=== PATIENT | female | born 1985 | race Caucasian/White ===

== ENCOUNTER 2018-01-25 06:19 | Day surgery (SDC) | payer OTHER ==
[~2018-01-25] VITALS: Ht 154.9 cm; Wt 91.2 kg
[~2018-01-25 06:19] MED LIST: PREN-234 PO
[2018-01-25] MEDS ORDERED: BUPIVACAINE-MPF 0.5% 30 ML VIAL INJ ONE (07:30)
[2018-01-25] MEDS ORDERED: LIDOCAINE 2% 100 MG/5 ML SYR IVP ONE (08:00)
[2018-01-25] MEDS ORDERED: PROPOFOL 200 MG/20 ML VIAL IV ONE (08:00)
[2018-01-25] MEDS ORDERED: DESFLURANE 240 ML BTL INH ONE (08:00)
[2018-01-25] MEDS ORDERED: DEXAMETHASONE 4 MG/ML VIAL ONE (08:00)
[2018-01-25] MEDS ORDERED: SUCCINYLCHOLINE CHLORIDE 200 MG/10 ML VIAL IVP ONE (08:00)
[2018-01-25] MEDS ORDERED: fentaNYL 0.05 MG/ML VIAL ONE (08:24)
[2018-01-25] MEDS ORDERED: MIDAZOLAM 2 MG/2 ML VIAL ONE (08:24)
[2018-01-25] MEDS ORDERED: ONDANSETRON 4 MG/2 ML VIAL IVP PRN ×2 (08:25→08:45)
[2018-01-25] MEDS ORDERED: MORPHINE SULFATE 4 MG/ML SYR IM/IVP PRN (08:25)
[2018-01-25] MEDS ORDERED: ACETAMINOPHEN/CODEINE 300/30MG 1 TAB PO PRN (08:25)
[2018-01-25] MEDS ORDERED: IBUPROFEN 800 MG TAB PO PRN (08:25)
[2018-01-25] MEDS ORDERED: HYDROmorphone 1 MG/ML AMP IVP PRN (08:45)
== END 2018-01-25 11:05 | disposition home or self-care (01) ==
LOC: MDS 06:19 → MMU 06:19 → MDS 11:05
PROVIDERS: ATTEND Obstetrics & Gynecology
DX: N94.6 Dysmenorrhea, unspecified (principal); N73.6 Female pelvic peritoneal adhesions (postinfective); E66.9 Obesity, unspecified; J45.909 Unspecified asthma, uncomplicated; F17.210 Nicotine dependence, cigarettes, uncomplicated; N18.9 Chronic kidney disease, unspecified; E11.22 Type 2 diabetes mellitus with diabetic chronic kidney disease; I13.0 Hypertensive heart and chronic kidney disease with heart failure and stage 1 through stage 4 chronic kidney disease, or unspecified chronic kidney disease; D64.9 Anemia, unspecified; F03.90 Unspecified dementia, unspecified severity, without behavioral disturbance, psychotic disturbance, mood disturbance, and anxiety; K21.9 Gastro-esophageal reflux disease without esophagitis; Z90.79 Acquired absence of other genital organ(s); Z79.899 Other long term (current) drug therapy
CPT/HCPCS: 58662; J0330; J0690; J1100; J2001; J2250; J2704; J3010; J3490; J7060; J7120; 82374

== ENCOUNTER 2018-10-20 15:44 | Emergency (ER) | payer OTHER ==
[~2018-10-20] VITALS: Ht 160 cm; Wt 91.8 kg
[2018-10-20 15:50] VITALS: BP 111/75
--- NOTE | 2018-10-20 15:57 | NUR ---
AFTER PROVIDING URINE SAMPLE, PT AMBULATES BACK TO THE LOBBY
--- NOTE | 2018-10-20 17:15 | NUR ---
PATIENT LEFT WITHOUT BEING SEEN BY DR. GUTIERREZ. NO FURTHER CARE PROVIDED FOR PATIENT.
--- NOTE | 2018-10-20 17:15 | NUR ---
PT CALLED X 1 NO RESPONSE
--- NOTE | 2018-10-20 17:20 | NUR ---
PT CALLED X 2 NO RESPONSE
--- NOTE | 2018-10-20 17:27 | NUR ---
Note venkatalinda in EDM - 10/20/18 at 1733 by [email or web address] Patient discharged with v/s stable. Written and verbal after care instructions given and explained. Patient alert, oriented and verbalized understanding of instructions. Ambulatory with steady gait. All questions addressed prior to discharge. ID band removed. Patient advised to follow up with PMD. Rx of LEVAQUIN AND PREDNISONE given. Patient educated on indication of medication including possible reaction and side effects. Opportunity to ask questions provided and answered.
--- NOTE | 2018-10-20 17:39 | NUR ---
PT CALLED X 3 NO RESPONSE
== END 2018-10-20 17:15 | disposition left against medical advice (07) ==
LOC: MED 15:44
DX: R10.9 Unspecified abdominal pain (principal); R11.0 Nausea; Z53.21 Procedure and treatment not carried out due to patient leaving prior to being seen by health care provider
CPT/HCPCS: 81002; 81025

== ENCOUNTER 2018-10-20 18:06 | Emergency (ER) | payer OTHER ==
[~2018-10-20] VITALS: Ht 160 cm; Wt 91.6 kg
[2018-10-20 18:22] VITALS: BP 124/76
--- NOTE | 2018-10-20 18:30 | NUR ---
AFTER PROVIDING URINE SPECIMEN, PT AMBULATES BACK TO THE LOBBY
--- NOTE | 2018-10-20 20:11 | NUR ---
Patient ambulated to bed 1. RN evaluating patient at bedside.
--- NOTE | 2018-10-20 20:20 | NUR ---
PT BIB SELF C/O RIGHT ABD PAIN. PT STATES SHE HAS HAD RIGHT ABD PAIN X3 DAYS. PT DENIES TRAUMA, REDNESS, SWELLING OR DISCHAGE. TENDERNESS TO TOUCH. PT STATES SHE HAS A HX OF SIEZURES LAST SIEZURE WAS 5-7 YEARS AGO, PT STATES SHE DOES NOT TAKE MEDICATION FOR SIEZURES. PT IN GOWN IN BED; BED IN LOWER LOCKED POSITION. ER MD MADE AWARE OF PT STATUS. WILL CONTINUE TO MONITOR. PMH: SIEZURES RX: DENIES
[2018-10-20] MEDS ORDERED: MORPHINE SULFATE 4 MG/ML SYR IVP ONE (20:30)
[2018-10-20 20:31] LABS: APPEARANCE,URINE CLEAR (CLEAR); BILIRUBIN,URINE NEGATIVE (NEGATIVE); BLOOD, URINE NEGATIVE (NEGATIVE); COLOR,URINE YELLOW (YELLOW); LEUKOCYTE ESTERASE ,URINE NEGATIVE (NEGATIVE); NITRITE, URINE NEGATIVE (NEGATIVE); PH,URINE 5.5 (5.0-9.0); UGLUCOSE NEGATIVE (NEGATIVE)
[2018-10-20 20:40] LABS: BASOPHILS % (AUTO) 0.3 % (0.0-2.0); EOSINOPHILS # (AUTO) 0.1 K/uL (0-0.4); EOSINOPHILS % (AUTO) 1.2 % (0.0-4.0); HEMATOCRIT 36.8 % (36-48); HEMOGLOBIN 12.6 g/dL (12.0-16.0); LYMPHOCYTES # (AUTO) 2.1 K/uL (2.5-16.5); LYMPHOCYTES % (AUTO) 21.7 % (20.5-51.1); MEAN CORPUSCULAR HEMOGLOBIN 28 pg (27-31); MEAN CORPUSCULAR HGB CONC 34 g/dL (33-37); MEAN CORPUSCULAR VOLUME 82.4 fL (80-94); MONOCYTES # (AUTO) 0.5 K/uL (0.8-1.0); MONOCYTES % (AUTO) 4.6 % (1.7-9.3); NEUTROPHILS # (AUTO) 7.1 K/uL (1.8-7.7); NEUTROPHILS % (AUTO) 72.2 % (42.2-75.2); PLATELET COUNT (AUTO) 291 K/uL (140-450); RED BLOOD CELL COUNT(AUTO) 4.47 MIL/uL (4.20-5.40); RED CELL DISTRIBUTION WIDTH 13.2 % (11.6-13.7); WHITE BLOOD COUNT (AUTO) 9.8 K/uL (4.8-10.8)
--- NOTE | 2018-10-20 20:40 | NUR ---
IV START: L AC 18G, FLUSHED WELL W/O RESISTANCE. NO REDNESS OR SWELLING NOTED, DENIES PAIN AT SITE. PT TOLERATED WELL.
[2018-10-20 20:55] LABS: ALBUMIN 3.2 g/dL (3.4-5.0); ANION GAP 15.6 (8-16); CARBON DIOXIDE 25.4 mmol/L (21-32); CREATININE 0.6 mg/dL (0.6-1.3)
--- NOTE | 2018-10-20 21:19 | NUR ---
PT STATES SOME RELIEF FROM PAIN AND STATES SHE IS FEELING BETTER, PAIN 5/10 TO RIGHT ABD AT THIS TIME.
[2018-10-20 21:49] LABS: TOTAL BILIRUBIN 0.3 mg/dL (0.0-1.0)
[2018-10-20 23:15] VITALS: BP 125/75
== END 2018-10-20 23:05 | disposition home or self-care (01) ==
LOC: MED 18:06
DX: K59.00 Constipation, unspecified (principal); Z90.49 Acquired absence of other specified parts of digestive tract; Z79.899 Other long term (current) drug therapy
CPT/HCPCS: 36415; 74176; 76700; 80053; 81003; 81025; 83690; 85025; 96374; 99284; J2270; Q0092

== ENCOUNTER 2019-06-13 19:51 | Emergency (ER) | payer OTHER ==
[~2019-06-13] VITALS: Ht 167.6 cm; Wt 99.8 kg
[2019-06-13 20:15] VITALS: BP 129/77
--- NOTE | 2019-06-13 20:15 | NUR ---
TO BED # 05 AMBULATORY
--- NOTE | 2019-06-13 20:32 | NUR ---
FIRST CONTACT PATIENT C/O SHEARER, DIZZINESS, CP AND AND DIFFICULTY SLEEPING X3 DAYS. THERE ARE NO FOCAL DEFICITS NOTED, GCS 15, AAOX4, NEURLOGICALLT INTACT. PATIENT DOES ENDORSE SOME INTERMITTENT CP,UNPROVOKED, MID CHEST, RADIATING TO THE NECK AND HEAD. PATIENT EXPRESSES THROBBING SENSATION, WITHOUT N/V/D, OR DIAPHORESIS. PATIENT BREATHING IS EVEN AND UNLABORED, EQUAL RISE AND FALL OF CHEST. PATIENT UPDATED WITH PLAN OF CARE. NO ACUTE DISTRESS NOTED. WILL CONTINUE TO MONITOR
--- NOTE | 2019-06-13 20:35 | NUR ---
Patient being evaluated by physician at bedside.
[2019-06-13] MEDS ORDERED: KETOROLAC 30 MG/ML VIAL IM ONE (20:40)
[2019-06-13 23:07] VITALS: BP 132/71
--- NOTE | 2019-06-13 23:07 | NUR ---
Patient discharged with v/s stable. Written and verbal after care instructions given and explained. Patient alert, oriented and verbalized understanding of instructions. Ambulatory with steady gait. All questions addressed prior to discharge. ID band removed. Patient advised to follow up with PMD. Rx of VALIUM AND NAPROSYN given. Patient educated on indication of medication including possible reaction and side effects. Opportunity to ask questions provided and answered.
--- NOTE | 2019-06-14 11:28 | NUR ---
Dr. Elena asked for patient to be called back for report and CD. Spoke with patient and advised her that was a change in her x-ray report. I told the patient she could come picking table worker her x-ray report with the CD images with ER admitting at her earliest convenienece. Pt verbalized understanding and report with CD left with Ailyn from ER admitting.
== END 2019-06-13 23:07 | disposition home or self-care (01) ==
LOC: MED 19:51
DX: R07.89 Other chest pain (principal); E78.5 Hyperlipidemia, unspecified; Z79.899 Other long term (current) drug therapy; Z87.19 Personal history of other diseases of the digestive system; Z90.49 Acquired absence of other specified parts of digestive tract
CPT/HCPCS: 71045; 93005; 96372; 99283; J1885; Q0092

== ENCOUNTER 2019-08-23 22:41 | Emergency (ER) | payer OTHER ==
[~2019-08-23] VITALS: Ht 154.9 cm; Wt 90.7 kg
[2019-08-23 23:15] VITALS: BP 114/85
--- NOTE | 2019-08-24 02:00 | NUR ---
33 Y/O FEMALE PRESENTS TO ED WITH C/O PRODUCTIVE COUGH, PAIN WITH COUGH, AND SHEARER X2 DAYS. AFEBRILE. GREEN SPUTUM. BILAT UPPER LOBE EXPIRATORY WHEEZING. 6/10 PAIN WITH COUGH. PT IN CHAIR SITTING UPRIGHT. NO DISTRESS OF ANY TYPE NOTED. ER MD AWARE. CONTINUE TO MONITOR.
--- NOTE | 2019-08-24 02:00 | NUR ---
PT AMBULATED TO CHD
[2019-08-24] MEDS ORDERED: KETOROLAC 60 MG/2 ML VIAL IM ONE (02:20)
[2019-08-24 02:45] VITALS: BP 114/85
--- NOTE | 2019-08-24 02:45 | NUR ---
Patient discharged with v/s stable. She states pain relief. Written and verbal after care instructions given and explained. Patient alert, oriented and verbalized understanding of instructions. Ambulatory with steady gait. All questions addressed prior to discharge. ID band removed. Patient advised to follow up with PMD. Rx of EC-Naprosyn given. Patient educated on indication of medication including possible reaction and side effects. Opportunity to ask questions provided and answered.
== END 2019-08-24 02:45 | disposition home or self-care (01) ==
LOC: MED 22:41
DX: B34.9 Viral infection, unspecified (principal); Z79.899 Other long term (current) drug therapy
CPT/HCPCS: 87804; 96372; 99283; J1885

== ENCOUNTER 2019-09-24 18:56 | Emergency (ER) | payer OTHER ==
[~2019-09-24] VITALS: Ht 154.9 cm; Wt 68.9 kg
[2019-09-24 18:58] VITALS: BP 90/43
--- NOTE | 2019-09-24 19:04 | NUR ---
WAIT AT LOBBY.HANDED ON URINE CUP.
--- NOTE | 2019-09-24 20:54 | NUR ---
PT AMBULATED TO BED 02
--- NOTE | 2019-09-24 21:00 | NUR ---
33 YEAR OLD MALE COMPLAINS OF RIGHT SIDE FLANK PAIN THAT RADIATES TO ABDOMEN STARTING TODAY. PATIENT STATES SHE HAS 7/10 PAIN. PATIENT DENIES N/V. PATIENT STATES SHE ALSO HAD DIARRHEA TODAY. PATIENT AOX4, BREAHTING EVEN AND UNLABORED, SKIN WARM AND DRY. BED IN LOWEST POSITION, LOCKED, BED RAIL UPX1. PMH - DENIES ALLERGIES - NONE
[2019-09-24 21:35] LABS: APPEARANCE,URINE CLOUDY (CLEAR); BILIRUBIN,URINE NEGATIVE (NEGATIVE); BLOOD, URINE 3+ (NEGATIVE); COLOR,URINE YELLOW (YELLOW); LEUKOCYTE ESTERASE ,URINE 2+ (NEGATIVE); NITRITE, URINE NEGATIVE (NEGATIVE); PH,URINE 5.5 (5.0-9.0); UGLUCOSE NEGATIVE (NEGATIVE)
[2019-09-24 21:36] LABS: BASOPHILS # (AUTO) 0.1 K/uL (0.00-0.22); BASOPHILS % (AUTO) 0.7 % (0.0-2.0); EOSINOPHILS # (AUTO) 0.1 K/uL (0-0.4); EOSINOPHILS % (AUTO) 1.1 % (0.0-4.0); HEMATOCRIT 39.3 % (36-48); HEMOGLOBIN 13.1 g/dL (12.0-16.0); LYMPHOCYTES % (AUTO) 32.2 % (20.5-51.1); MEAN CORPUSCULAR HEMOGLOBIN 28 pg (27-31); MEAN CORPUSCULAR HGB CONC 33 g/dL (33-37); MEAN CORPUSCULAR VOLUME 84.8 fL (80-94); MONOCYTES # (AUTO) 0.5 K/uL (0.8-1.0); MONOCYTES % (AUTO) 5.3 % (1.7-9.3); NEUTROPHILS # (AUTO) 5.7 K/uL (1.8-7.7); NEUTROPHILS % (AUTO) 60.7 % (42.2-75.2); PLATELET COUNT (AUTO) 318 K/uL (140-450); RED BLOOD CELL COUNT(AUTO) 4.63 MIL/uL (4.20-5.40); RED CELL DISTRIBUTION WIDTH 13.1 % (11.6-13.7); WHITE BLOOD COUNT (AUTO) 9.5 K/uL (4.8-10.8)
[2019-09-24 21:50] LABS: RBC,URINE 80-100 /HPF (0-5)
[2019-09-24 22:09] LABS: ALBUMIN 3.2 g/dL (3.4-5.0); ANION GAP 12.6 (8-16); CARBON DIOXIDE 30.2 mmol/L (21-32); CREATININE 0.9 mg/dL (0.6-1.3); POTASSIUM 3.8 mmol/L (3.5-5.1); TOTAL BILIRUBIN 0.2 mg/dL (0.0-1.0)
--- NOTE | 2019-09-24 22:11 | NUR ---
PATIENT ALERT AND AWAKE, BREATHING EVEN AND UNLABORED.
--- NOTE | 2019-09-24 22:43 | NUR ---
PATIENT ALERT AND AWAKE, BREATHING EVEN AND UNLABORED.
[2019-09-24 23:10] VITALS: BP 94/47
--- NOTE | 2019-09-24 23:10 | NUR ---
Patient discharged with v/s stable. Written and verbal after care instructions about urinary tract infections given and explained. Patient alert, oriented and verbalized understanding of instructions. Ambulatory with steady gait. All questions addressed prior to discharge. ID band removed. Patient advised to follow up with PMD. Rx of keflex given. Patient educated on indication of medication including possible reaction and side effects. Opportunity to ask questions provided and answered.
== END 2019-09-24 23:10 | disposition home or self-care (01) ==
LOC: MED 18:56
DX: N39.0 Urinary tract infection, site not specified (principal); R19.7 Diarrhea, unspecified; Z79.899 Other long term (current) drug therapy
CPT/HCPCS: 36415; 76705; 80053; 81001; 81025; 83690; 84703; 85025; 87086; 99284; Q0092; 87186

== ENCOUNTER 2020-03-20 01:25 | Emergency (ER) | payer OTHER ==
[~2020-03-20] VITALS: Ht 160 cm; Wt 101.6 kg
[2020-03-20 01:38] VITALS: BP 134/80
--- NOTE | 2020-03-20 02:38 | NUR ---
PT AMBULATED TO BED 1
[2020-03-20] MEDS ORDERED: KETOROLAC 30 MG/ML VIAL ONE (02:48)
[2020-03-20] MEDS: KETOROLAC 30 MG/ML VIAL IM ONE (03:00)
--- NOTE | 2020-03-20 03:00 | NUR ---
34 year old female presents to ER with c/o left sided headache s/p hitting head on the wall x 1 day after trying to catch an elderly falling. states +headache, +loc when incident took place. denies any other s/sx. PERRLA. a/o x 4. states taking tylenol x6 hours with no pain relief. pmhx: denies rx: denies nka
[2020-03-20 03:58] VITALS: BP 121/89
== END 2020-03-20 03:58 | disposition home or self-care (01) ==
LOC: MED 01:25
DX: S09.90XA Unspecified injury of head, initial encounter (principal); Z79.899 Other long term (current) drug therapy; W22.01XA Walked into wall, initial encounter; Y93.89 Activity, other specified; Y92.89 Other specified places as the place of occurrence of the external cause; Y99.8 Other external cause status
CPT/HCPCS: 36415; 70450; 84702; 96372; 99284; J1885

== ENCOUNTER 2021-04-02 04:18 | Emergency (ER) | payer OTHER ==
[~2021-04-02] VITALS: Ht 154.9 cm; Wt 105.2 kg
[2021-04-02 04:20] VITALS: BP 133/75
--- NOTE | 2021-04-02 04:20 | NUR ---
TO BED AMBULATORY
[2021-04-02] MEDS ORDERED: PANTOPRAZOLE 40 MG TABEC PO ONE (04:40)
[2021-04-02] MEDS ORDERED: ASPIRIN 325 MG TAB PO ONE (04:40)
[2021-04-02] MEDS ORDERED: NITROGLYCERIN 0.4 MG TAB SL ONE (04:40)
--- NOTE | 2021-04-02 05:01 | NUR ---
XRAY AT BEDSIDE.
--- NOTE | 2021-04-02 05:02 | NUR ---
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
--- NOTE | 2021-04-02 05:03 | NUR ---
PT BIB SELF FOR C/C CHEST PAIN THAT RADIATES TO LEFT ARM. BEGAN AT 0300. PAIN 10/10, DESCRIBED "PRESSURE." PT AMBULATORY, A & O X 3. NO JVD NOTED. CAP REFILL < 3 SECONDS. SKIN IS WARM, DRY AND INTACT. MED HX: PREDIABETIC ALLERGIES: NKA
--- NOTE | 2021-04-02 05:08 | NUR ---
BP NOTED 100/63, ERMD AWARE. ORDERS TO HOLD NITROSTAT FOR NOW.
--- NOTE | 2021-04-02 05:30 | NUR ---
IV 18G EST TO RIGHT FA BY JD PLATA. LABS DRAWN AND WALKED TO LAB.
[2021-04-02 05:43] LABS: BASOPHILS # (AUTO) 0.1 K/uL (0.00-0.22); BASOPHILS % (AUTO) 0.7 % (0.0-2.0); EOSINOPHILS # (AUTO) 0.2 K/uL (0-0.4); EOSINOPHILS % (AUTO) 1.4 % (0.0-4.0); HEMATOCRIT 36.7 % (36-48); HEMOGLOBIN 12.3 g/dL (12.0-16.0); LYMPHOCYTES # (AUTO) 2.8 K/uL (2.5-16.5); LYMPHOCYTES % (AUTO) 24.9 % (20.5-51.1); MEAN CORPUSCULAR HEMOGLOBIN 28 pg (27-31); MEAN CORPUSCULAR HGB CONC 33 g/dL (33-37); MEAN CORPUSCULAR VOLUME 84.6 fL (80-94); MONOCYTES # (AUTO) 0.5 K/uL (0.8-1.0); MONOCYTES % (AUTO) 4.5 % (1.7-9.3); NEUTROPHILS # (AUTO) 7.7 K/uL (1.8-7.7); NEUTROPHILS % (AUTO) 68.5 % (42.2-75.2); PLATELET COUNT (AUTO) 301 K/uL (140-450); RED BLOOD CELL COUNT(AUTO) 4.34 MIL/uL (4.20-5.40); RED CELL DISTRIBUTION WIDTH 14.2 % (11.6-13.7); WHITE BLOOD COUNT (AUTO) 11.3 K/uL (4.8-10.8)
[2021-04-02 06:00] LABS: ALBUMIN 3.3 g/dL (3.4-5.0); ANION GAP 12.3 (8-16); CARBON DIOXIDE 24.5 mmol/L (21-32); CREATININE 0.6 mg/dL (0.6-1.3); POTASSIUM 3.8 mmol/L (3.5-5.1); TOTAL BILIRUBIN 0.3 mg/dL (0.0-1.0)
--- NOTE | 2021-04-02 06:34 | NUR ---
LYNDA SIMPSON AT BEDSIDE.
[2021-04-02 06:58] VITALS: BP 100/63
--- NOTE | 2021-04-02 06:59 | NUR ---
Patient discharged with v/s stable. Written and verbal after care instructions given and explained. Patient verbalized understanding. Ambulatory with steady gait. All questions addressed prior to discharge. Advised to follow up with PMD.
== END 2021-04-02 06:59 | disposition home or self-care (01) ==
LOC: MED 04:18
DX: R07.89 Other chest pain (principal); R06.02 Shortness of breath; R00.2 Palpitations; Z79.899 Other long term (current) drug therapy
CPT/HCPCS: 36415; 71045; 80053; 84484; 85025; 93005; 99285; Q0092

== ENCOUNTER 2021-07-03 23:17 | Emergency (ER) | payer OTHER ==
[~2021-07-03] VITALS: Ht 167.6 cm; Wt 106.6 kg
[2021-07-03 23:25] VITALS: BP 129/85
[2021-07-04] MEDS ORDERED: ACETAMINOPHEN EXTRA STRENGTH 500 MG TAB PO ONE (00:40)
[2021-07-04] MEDS ORDERED: IBUPROFEN 400 MG TAB PO ONE (00:40)
--- NOTE | 2021-07-04 01:00 | NUR ---
Kaden sahu in [facility] - 07/04/21 at 0259 by [facility] NO NURSING INTERVENTIONS REQUIRED.
[2021-07-04 01:15] LABS: BASOPHILS # (AUTO) 0.1 K/uL (0.00-0.22); BASOPHILS % (AUTO) 0.9 % (0.0-2.0); EOSINOPHILS # (AUTO) 0.2 K/uL (0-0.4); EOSINOPHILS % (AUTO) 2.3 % (0.0-4.0); HEMATOCRIT 38.2 % (36-48); LYMPHOCYTES # (AUTO) 3.1 K/uL (2.5-16.5); LYMPHOCYTES % (AUTO) 31.7 % (20.5-51.1); MEAN CORPUSCULAR HEMOGLOBIN 28 pg (27-31); MEAN CORPUSCULAR HGB CONC 34 g/dL (33-37); MEAN CORPUSCULAR VOLUME 83.3 fL (80-94); MONOCYTES # (AUTO) 0.4 K/uL (0.8-1.0); MONOCYTES % (AUTO) 4.2 % (1.7-9.3); NEUTROPHILS # (AUTO) 5.9 K/uL (1.8-7.7); NEUTROPHILS % (AUTO) 60.9 % (42.2-75.2); PLATELET COUNT (AUTO) 346 K/uL (140-450); RED BLOOD CELL COUNT(AUTO) 4.58 MIL/uL (4.20-5.40); RED CELL DISTRIBUTION WIDTH 13.7 % (11.6-13.7); WHITE BLOOD COUNT (AUTO) 9.7 K/uL (4.8-10.8)
[2021-07-04 01:32] LABS: ANION GAP 12.2 (8-16); CARBON DIOXIDE 27.7 mmol/L (21-32); CREATININE 0.6 mg/dL (0.6-1.3); POTASSIUM 3.9 mmol/L (3.5-5.1)
[2021-07-04 01:36] LABS: ALBUMIN 3.3 g/dL (3.4-5.0); BILIRUBIN,DIRECT 0.1 mg/dL (0.0-0.3); TOTAL BILIRUBIN 0.2 mg/dL (0.0-1.0)
[2021-07-04 02:55] VITALS: BP 125/82
== END 2021-07-04 02:55 | disposition home or self-care (01) ==
LOC: MED 23:17
DX: R07.9 Chest pain, unspecified (principal); E78.5 Hyperlipidemia, unspecified; Z86.69 Personal history of other diseases of the nervous system and sense organs; Z79.899 Other long term (current) drug therapy
CPT/HCPCS: 36415; 71045; 80048; 80076; 81002; 81025; 83690; 84484; 84702; 85025; 93005; 99285

== ENCOUNTER 2021-08-07 14:45 | Emergency (ER) | payer OTHER ==
[~2021-08-07] VITALS: Ht 162.6 cm; Wt 107.0 kg
[2021-08-07 15:20] VITALS: BP 114/71
[2021-08-07] MEDS ORDERED: PROM118S5 PO (17:32)
[2021-08-07] MEDS ORDERED: NAPR-54 PO (17:32)
--- NOTE | 2021-08-07 20:06 | NUR ---
PT ASSESED AND DISCHARGED BY JEFF PALOMO. NO NURSING INTERVENTIONS NEEDED
== END 2021-08-07 23:16 | disposition home or self-care (01) ==
LOC: MED 14:45
DX: B34.9 Viral infection, unspecified (principal); Z20.822 Contact with and (suspected) exposure to COVID-19
CPT/HCPCS: 99283

== ENCOUNTER → 2021-08-08 16:32 | Emergency (ER) | payer OTHER ==
[~2021-08-08 16:32] MED LIST changes: +NAPR-54 PO; +PROM118S5 PO
--- NOTE | 2021-08-08 16:32 | NUR ---
PATIENT LEFT WITHOUT BEING SEEN BY DR. MORRISON. NO FURTHER CARE PROVIDED FOR PATIENT.
--- NOTE | 2021-08-08 17:00 | NUR ---
CALLED X 1. NO SHOW.
--- NOTE | 2021-08-08 17:10 | NUR ---
CALLED X 2. NO SHOW.
--- NOTE | 2021-08-08 17:22 | NUR ---
CALLED X 3. NO SHOW.
== END | disposition left against medical advice (07) ==
LOC: MED 16:32
DX: Z53.21 Procedure and treatment not carried out due to patient leaving prior to being seen by health care provider (principal)

== ENCOUNTER 2022-03-04 08:18 | Emergency (ER) | payer OTHER ==
[~2022-03-04] VITALS: Ht 154.9 cm; Wt 111.4 kg
[2022-03-04 08:24] VITALS: BP 167/70
--- NOTE | 2022-03-04 08:32 | NUR ---
PT AMBULATED TO BED 06.
--- NOTE | 2022-03-04 09:01 | NUR ---
36YR OLD FEMALE BIB SELF C/O ABD PAIN LOWER BACK PAIN GEN BODY PAIN. PT WAS TESTED FOR COVID LAST WEEK NEG RESULT. HAD FLU LIKE SX LAST WEEK. LOWER ABD PAIN TO LOW BACK X1 DAY . 10/ PAIN LEVEL . DENIES V/D. SHEARER AND DIZZNIESS X1DAY. PT IS A&OX4. SKIN WARM AND DRY. PT IN GOWN WITH SIDE RAILS UP X1 BED AT LOWEST POSITION. NKDA NO MED HX
[2022-03-04] MEDS ORDERED: KETOROLAC 30 MG/ML VIAL IM ONE (09:20)
[2022-03-04] MEDS ORDERED: NAPR-54 PO (10:55)
--- NOTE | 2022-03-04 10:57 | NUR ---
PT STATED FEELING BETTER AND WANTS TO BE DC HOME.
[2022-03-04 11:28] VITALS: BP 134/72
--- NOTE | 2022-03-04 11:29 | NUR ---
The patient's care was reviewed and supervised by Orin Jeknins RN.
== END 2022-03-04 11:28 | disposition home or self-care (01) ==
LOC: MED 08:18
DX: M79.10 Myalgia, unspecified site (principal); R51.9 Headache, unspecified; Z90.49 Acquired absence of other specified parts of digestive tract; Z79.899 Other long term (current) drug therapy
CPT/HCPCS: 81002; 81025; 96372; 99283; J1885

== ENCOUNTER 2022-04-07 12:15 | Emergency (ER) | payer OTHER ==
[~2022-04-07] VITALS: Ht 154.9 cm; Wt 112.1 kg
[2022-04-07 12:47] VITALS: BP 140/92
--- NOTE | 2022-04-07 13:04 | NUR ---
C/O EPIGASTRIC PAIN, DIZZINESS, NAUSEA , SHEARER X YESTERDAY.
--- NOTE | 2022-04-07 13:05 | NUR ---
Patient being evaluated by ARABELLA PRADO at [facility].
[2022-04-07] MEDS ORDERED: NACL 0.9% 1,000 ML IV SCH (13:10)
[2022-04-07] MEDS ORDERED: METOCLOPRAMIDE 10 MG/2 ML INJ VIAL IVP ONE (13:10)
[2022-04-07] MEDS ORDERED: diphenhydrAMINE 50 MG/ML VIAL IVP ONE (13:10)
[2022-04-07] MEDS ORDERED: ONDA-188 PO (14:22)
[2022-04-07] MEDS ORDERED: ACET-10509 PO (14:22)
[2022-04-07 14:42] VITALS: BP 127/87
--- NOTE | 2022-04-07 14:42 | NUR ---
DPatient discharged with v/s stable. Written and verbal after care instructions FOR GENERAL HEADACHE W/O CAUSSE given and explained. Patient alert, oriented and verbalized understanding of instructions. Ambulatory with steady gait. All questions addressed prior to discharge. ID band removed. Patient advised to follow up with PMD. Rx of ZOFRAN AND TYLENOL XTRA STRENGTH given.
--- NOTE | 2022-04-07 14:43 | NUR ---
The patient's care was reviewed and supervised by Orin Jenkins RN.
== END 2022-04-07 14:42 | disposition home or self-care (01) ==
LOC: MED 12:15
DX: R51.9 Headache, unspecified (principal); R42 Dizziness and giddiness; R11.0 Nausea; Z79.899 Other long term (current) drug therapy
CPT/HCPCS: 81002; 81025; 96372; 99284; J1200; J2765; J7030

== ENCOUNTER 2022-07-12 18:22 | Emergency (ER) | payer OTHER ==
[~2022-07-12] VITALS: Ht 154.9 cm; Wt 113.9 kg
[~2022-07-12 18:22] MED LIST changes: +ACET-10509 PO; +ONDA-188 PO
[2022-07-12 18:31] VITALS: BP 122/67
[2022-07-12 20:25] LABS: BASOPHILS % (AUTO) 0.6 % (0.0-2.0); EOSINOPHILS % (AUTO) 0.7 % (0.0-4.0); HEMATOCRIT 37.2 % (36-48); HEMOGLOBIN 12.5 g/dL (12.0-16.0); LYMPHOCYTES # (AUTO) 0.8 K/uL (2.5-16.5); LYMPHOCYTES % (AUTO) 14.8 % (20.5-51.1); MEAN CORPUSCULAR HEMOGLOBIN 28 pg (27-31); MEAN CORPUSCULAR HGB CONC 34 g/dL (33-37); MEAN CORPUSCULAR VOLUME 83.8 fL (80-94); MONOCYTES # (AUTO) 0.4 K/uL (0.8-1.0); MONOCYTES % (AUTO) 7.8 % (1.7-9.3); NEUTROPHILS % (AUTO) 76.1 % (42.2-75.2); PLATELET COUNT (AUTO) 254 K/uL (140-450); RED BLOOD CELL COUNT(AUTO) 4.44 MIL/uL (4.20-5.40); RED CELL DISTRIBUTION WIDTH 13.4 % (11.6-13.7); WHITE BLOOD COUNT (AUTO) 5.2 K/uL (4.8-10.8)
[2022-07-12 20:48] LABS: APPEARANCE,URINE CLEAR (CLEAR); BILIRUBIN,URINE NEGATIVE (NEGATIVE); BLOOD, URINE NEGATIVE (NEGATIVE); COLOR,URINE YELLOW (YELLOW); LEUKOCYTE ESTERASE ,URINE NEGATIVE (NEGATIVE); NITRITE, URINE NEGATIVE (NEGATIVE); PH,URINE 6.5 (5.0-9.0); UGLUCOSE NEGATIVE (NEGATIVE)
--- NOTE | 2022-07-12 21:06 | NUR ---
PATIENT RETURNED FROM US AND PLACED IN BED 11. BED LOW AND LOCKED. BEDSIDE MONITOR ATTACHED. PARAS SIDE RAILS FOR SAFETY. CALL LIGHT IN REACH. ALL NEEDS MET.
--- NOTE | 2022-07-12 21:06 | NUR ---
PT TO 11
--- NOTE | 2022-07-12 21:15 | NUR ---
36/F BIB SELF C/C 8/10 COUGH PAIN. +CONGESTION +CHILLS +PRODUCTIVE COUGH AND SORE THROAT. PATIENT REPORTS CALLING OB AND GOT REFERRAL TO ER BY PHONE. PATIENT STATED THAT WHEN SHE COUGH SHE RELEASES "MOIST FLUIDS AND HAS FOUL ODOR OF URINE", BUT STATED THAT SHE KNOWS ITS NOT URINE. PATIENT DX WITH [facility] DM A FEW DAYS AGO BY OB. DENIES TAKING MEDS GALVANIZING POT RUNNER. A5 L4 LMP MAY 14 2022 PMHX GESTATIONAL DM DENIES RX NKA
--- NOTE | 2022-07-12 22:17 | NUR ---
Patient being evaluated by physician at bedside.
[2022-07-12 22:27] VITALS: BP 103/60
== END 2022-07-12 22:27 | disposition home or self-care (01) ==
LOC: MED 18:22
DX: O20.0 Threatened abortion (principal); Z20.822 Contact with and (suspected) exposure to COVID-19; O26.891 Other specified pregnancy related conditions, first trimester; B34.9 Viral infection, unspecified; I10 Essential (primary) hypertension; E86.0 Dehydration; Z3A.08 8 weeks gestation of pregnancy; Z79.899 Other long term (current) drug therapy
CPT/HCPCS: 36415; 76801; 81003; 84702; 85025; 86900; 86901; 87426; 87804; 99284; Q0092

== ENCOUNTER 2022-08-21 23:39 | Emergency (ER) | payer OTHER ==
[~2022-08-21] VITALS: Ht 154.9 cm; Wt 114.8 kg
[~2022-08-21 23:39] MED LIST changes: -ACET-10509 PO; -NAPR-54 PO; -ONDA-188 PO; -PROM118S5 PO
[2022-08-21 23:46] VITALS: BP 135/78
--- NOTE | 2022-08-21 23:50 | NUR ---
TO BED VIA W/C
--- NOTE | 2022-08-21 23:56 | NUR ---
Dr. Virk examining patient.
--- NOTE | 2022-08-21 23:57 | NUR ---
PT TAKEN TO BED 8
--- NOTE | 2022-08-22 00:12 | NUR ---
Attempted to collect urine, pt refused at this time
--- NOTE | 2022-08-22 00:38 | NUR ---
mechanical laboratory technician by bedside collecting labs
[2022-08-22 01:01] LABS: ALBUMIN 3.3 g/dL (3.4-5.0); ANION GAP 14.3 (8-16); CREATININE 0.4 mg/dL (0.6-1.3); POTASSIUM 3.3 mmol/L (3.5-5.1); TOTAL BILIRUBIN 0.2 mg/dL (0.0-1.0)
[2022-08-22 01:14] LABS: BASOPHILS % (AUTO) 0.4 % (0.0-2.0); EOSINOPHILS # (AUTO) 0.1 K/uL (0-0.4); HEMATOCRIT 32.4 % (36-48); HEMOGLOBIN 11.6 g/dL (12.0-16.0); LYMPHOCYTES # (AUTO) 2.2 K/uL (2.5-16.5); LYMPHOCYTES % (AUTO) 26.3 % (20.5-51.1); MEAN CORPUSCULAR HEMOGLOBIN 31 pg (27-31); MEAN CORPUSCULAR HGB CONC 36 g/dL (33-37); MEAN CORPUSCULAR VOLUME 85.8 fL (80-94); MONOCYTES # (AUTO) 0.4 K/uL (0.8-1.0); MONOCYTES % (AUTO) 4.3 % (1.7-9.3); NEUTROPHILS # (AUTO) 5.7 K/uL (1.8-7.7); PLATELET COUNT (AUTO) 254 K/uL (140-450); RED BLOOD CELL COUNT(AUTO) 3.78 MIL/uL (4.20-5.40); RED CELL DISTRIBUTION WIDTH 13.4 % (11.6-13.7); WHITE BLOOD COUNT (AUTO) 8.4 K/uL (4.8-10.8)
--- NOTE | 2022-08-22 01:23 | NUR ---
Ultrasound at bedside.
--- NOTE | 2022-08-22 02:23 | NUR ---
Resting in bed at this time. No c/o discomfort. Attempted to collect urine, pt refused stating c/o dizziness and not wanting to move at this time
[2022-08-22 04:11] VITALS: BP 101/50
== END 2022-08-22 04:16 | disposition home or self-care (01) ==
LOC: MED 23:39
DX: O20.8 Other hemorrhage in early pregnancy (principal); Z3A.12 12 weeks gestation of pregnancy
CPT/HCPCS: 36415; 76805; 80053; 84702; 85025; 86900; 86901; 99285